=== PATIENT | male | born 1985 | race African-American/Black ===

== ENCOUNTER 2025-04-29 06:16 | Emergency (ER) | payer SELFPAY ==
[~2025-04-29] VITALS: Ht 177.8 cm; Wt 87.0 kg
[2025-04-29 06:43] VITALS: O2SAT 99
[2025-04-29] MEDS ORDERED: AMOX1TAB16 MT (07:47)
[2025-04-29] MEDS: ACETAMINOPHEN 325MG TABLET PO ONE (08:17)
[2025-04-29 08:25] VITALS: BP 103/75; PULSE 70; RESP 18; TEMP 36.7; O2SAT 99
== END 2025-04-29 08:27 | disposition home or self-care (01) ==
LOC: ER 06:16
DX: K04.7 Periapical abscess without sinus (principal); F12.90 Cannabis use, unspecified, uncomplicated; F15.90 Other stimulant use, unspecified, uncomplicated; Z88.6 Allergy status to analgesic agent
CPT/HCPCS: 99283